=== PATIENT | male | born 1995 | race Caucasian/White ===

== ENCOUNTER 2017-04-13 14:14 | Emergency (ER) | payer SELFPAY ==
[~2017-04-13] VITALS: Ht 175.3 cm; Wt 82.0 kg
[~2017-04-13 14:14] MED LIST: INSULIN PUMP
[2017-04-13 20:33] VITALS: BP 110/69
== END 2017-04-13 20:45 | disposition home or self-care (01) ==
LOC: ER 14:14
DX: E10.65 Type 1 diabetes mellitus with hyperglycemia (principal); J45.909 Unspecified asthma, uncomplicated; Z79.4 Long term (current) use of insulin; Z88.8 Allergy status to other drugs, medicaments and biological substances
CPT/HCPCS: 82962; 99283; Z7610